=== PATIENT | male | born 1940 | race Two or more races ===

== ENCOUNTER → 2017-07-13 | Outpatient (CLI) | payer MEDICARE, MEDICAID ==
[2017-07-13 09:42] LABS: ABSOLUTE EOSINOPHILS # (AUTO) 0.2 10^3/uL (0.0-0.6); ABSOLUTE LYMPHOCYTES (AUTO) 1.8 10^3/uL (0.5-4.7); ABSOLUTE MONOCYTES (AUTO) 0.5 10^3/uL (0.1-1.4); ABSOLUTE NEUT (AUTO) 3.8 10^3/uL (1.7-8.2); BASOPHILS % (AUTO) 0.3 % (0-2); HEMATOCRIT 39.3 % (37.9-51.0); HEMOGLOBIN 13.2 g/dL (13.5-17.0); LYMPHOCYTES % (AUTO) 28.5 % (13-45); MEAN CORPUSCULAR HEMOGLOBIN 31.5 pg (27.0-33.4); MEAN CORPUSCULAR HGB CONC 33.7 g/dL (32.0-36.0); MEAN CORPUSCULAR VOLUME 93 fl (80-97); MONOCYTES % (AUTO) 7.4 % (3-13); PLATELET COUNT 243 10^3/uL (150-450); RED BLOOD COUNT 4.21 10^6/uL (4.35-5.55); RED CELL DISTRIBUTION WIDTH 14.1 % (11.5-14.0); SEGMENTED NEUTROPHILS % (AUTO) 59.8 % (42-78); TOTAL CELLS COUNTED % (AUTO) 100 %; WHITE BLOOD COUNT 6.3 10^3/uL (4.0-10.5)
[2017-07-13 09:56] LABS: ALANINE AMINOTRANSFERASE 27 U/L (21-72); ALBUMIN 4.5 g/dL (3.5-5.0); ALKALINE PHOSPHATASE 65 U/L (38-126); ANION GAP 10 (5-19); ASPARTATE AMINO TRANSFERASE 26 U/L (17-59); BILIRUBIN,DIRECT 0.6 mg/dL (0.0-0.4); BILIRUBIN,TOTAL 0.8 mg/dL (0.2-1.3); BLOOD UREA NITROGEN 24 mg/dL (7-20); CALCIUM 9.2 mg/dL (8.4-10.2); CARBON DIOXIDE 27 mmol/L (22-30); CHLORIDE 107 mmol/L (98-107); CHOLESTEROL 153.25 mg/dL (0-200); GLUCOSE 94 mg/dL (75-110); POTASSIUM 5.1 mmol/L (3.6-5.0); SODIUM 144.2 mmol/L (137-145); TOTAL PROTEIN 8.1 g/dL (6.3-8.2); TRIGLYCERIDES 65 mg/dL (<150)
[2017-07-13 10:23] LABS: DIRECT LDL 81 mg/dL (<100)
== END ==
LOC: OD 08:54
PROVIDERS: ATTEND Physician Assistant
DX: E78.2 Mixed hyperlipidemia (principal); Z12.5 Encounter for screening for malignant neoplasm of prostate; Z79.899 Other long term (current) drug therapy
CPT/HCPCS: 36415; 84443; 85025; 80053; 80061; G0103